=== PATIENT | male | born 1990 | race Two or more races ===

== ENCOUNTER 2018-02-13 01:22 | Emergency (ER) | payer SELFPAY ==
[~2018-02-13] VITALS: Ht 175.3 cm; Wt 80.0 kg
[2018-02-13 01:38] VITALS: BP 143/100
[2018-02-13] MEDS ORDERED: HYDROcodone/APAP 5/325 TABLET PO ONE (03:30)
[2018-02-13] MEDS ORDERED: HYDROcodone/APAP 5/325 TABLET ONE (03:51)
== END 2018-02-13 04:14 | disposition home or self-care (01) ==
LOC: ED 04:00
DX: S62.336A Displaced fracture of neck of fifth metacarpal bone, right hand, initial encounter for closed fracture (principal); X58.XXXA Exposure to other specified factors, initial encounter; Y93.89 Activity, other specified; Y99.8 Other external cause status; Y92.89 Other specified places as the place of occurrence of the external cause
CPT/HCPCS: 29125; 99284

== ENCOUNTER 2019-01-25 05:28 | Emergency (ER) | payer SELFPAY ==
[~2019-01-25] VITALS: Ht 175.3 cm; Wt 66.7 kg
[2019-01-25 08:49] VITALS: BP 116/29
== END 2019-01-25 08:51 | disposition home or self-care (01) ==
LOC: ED 06:10
DX: R06.00 Dyspnea, unspecified (principal); K29.00 Acute gastritis without bleeding; R94.5 Abnormal results of liver function studies; F17.200 Nicotine dependence, unspecified, uncomplicated
CPT/HCPCS: 36415; 71046; 76700; 80053; 83690; 85025; 85379; 93005; 99284